=== PATIENT | female | born 1990 ===

== ENCOUNTER → 2021-06-19 13:13 | Outpatient (ROUT) | payer OTHER, SELFPAY ==
[2021-06-19 14:45] LABS: COVID19 -Nasal RAPID POSITIVE (Negative)
== END ==
PROVIDERS: Visit Provider Physician Assistant
DX: U07.1 COVID-19 (principal); Z20.822 Contact with and (suspected) exposure to COVID-19
CPT/HCPCS: 87635

== ENCOUNTER → 2021-08-15 11:54 | Outpatient (ROUT) | payer OTHER, SELFPAY ==
[2021-08-15 12:59] LABS: COVID19 -Nasal RAPID Negative (Negative)
== END ==
PROVIDERS: Visit Provider Physician Assistant
DX: Z20.822 Contact with and (suspected) exposure to COVID-19 (principal)
CPT/HCPCS: 87635

== ENCOUNTER → 2021-11-23 11:59 | Outpatient (ROUT) | payer OTHER, SELFPAY ==
[2021-11-23 12:22] LABS: COVID19 -Nasal RAPID Negative (Negative)
== END ==
PROVIDERS: Visit Provider Physician Assistant
DX: Z20.822 Contact with and (suspected) exposure to COVID-19 (principal)
CPT/HCPCS: 87635